=== PATIENT | female | born 1965 | race Caucasian/White ===

== ENCOUNTER → 2023-12-08 11:23 | Outpatient (REF) | payer MEDICARE, SELFPAY ==
[2023-12-08 13:33] LABS: % Basophils 0.8 % (0-2); % Eosinophils 3.8 % (0-6); % Immature Granulocytes 1.1 % (0-0.5); % Lymphocytes 34.2 % (20.5-51.1); % Monocytes 8.6 % (1.7-9.3); % Neutrophils 51.5 % (42.2-75.2); Absolute Eosinophils 0.1 10^3/uL (0-0.7); Absolute Lymphocytes 0.9 10^3/uL (1.2-3.4); Absolute Monocytes 0.2 10^3/uL (0.1-0.6); Absolute Neutrophils 1.4 10^3/uL (1.4-6.5); Hematocrit 30.4 % (37.0-47.0); Hemoglobin 9.9 g/dL (12.0-16.0); Mean Corp Hgb Conc. 32.6 g/dL (33.0-37.0); Mean Corpuscular Volume 101.3 fL (81.0-99.0); Mean Platelet Volume 9.4 fL (7.4-10.4); Nucleated Red Blood Cells % 0 %; Platelet Count 202 10^3/uL (130-400); Red Cell Dist. Width 13.9 % (11.5-14.5); White Blood Cell Count 2.7 10^3/uL (4.8-10.8)
[2023-12-08 14:00] LABS: ALT (SGPT) 16 U/L (0-35); AST (SGOT) 52 U/L (14-36); Albumin 3.4 g/dl (3.5-5.0); Alkaline Phosphatase 128 U/L (38-126); Blood Urea Nitrogen 15 mg/dl (7-17); Calcium 8.9 mg/dl (8.4-10.2); Carbon Dioxide 25 mmol/L (22-30); Chloride 107 mmol/L (98-107); Glucose 83 mg/dl (70-99); Potassium 4.1 mmol/L (3.5-5.1); Sodium 142 mmol/L (135-145); Total Bilirubin 0.2 mg/dl (0.2-1.3); Total Protein 6.4 g/dl (6.3-8.2); eGFR > 60.00
[2023-12-08 14:14] LABS: Free T4 0.62 ng/dl (0.78-2.19); Vitamin D, 25-OH*** 36.6 ng/mL (30-80)
[2023-12-08 14:27] LABS: TSH 2.53 uIU/ml (0.47-4.68); TSH Reflex To Free T4 2.53 uIU/ml (0.47-4.68)
[2023-12-08 14:47] LABS: Vitamin B12 729 pg/ml (239-931)
[2023-12-08 16:02] LABS: Folate 6.6 ng/ml (2.76-20)
== END ==
LOC: RAD 11:23
PROVIDERS: ATTENDING PHYSICIAN Internal Medicine
DX: S09.90XA Unspecified injury of head, initial encounter (principal); R51.9 Headache, unspecified; R26.81 Unsteadiness on feet; D53.9 Nutritional anemia, unspecified; R63.4 Abnormal weight loss; E55.9 Vitamin D deficiency, unspecified; E53.8 Deficiency of other specified B group vitamins; E03.9 Hypothyroidism, unspecified
CPT/HCPCS: 36415; 70450; 80053; 82306; 82607; 82746; 84439; 84443; 85025

== ENCOUNTER 2023-12-15 13:34 | Emergency (ER) | payer MEDICARE, SELFPAY ==
[2023-12-15 13:37] VITALS: BP 129/84
[2023-12-15 14:02] LABS: % Basophils 0.7 % (0-2); % Eosinophils 3.5 % (0-6); % Immature Granulocytes 0.4 % (0-0.5); % Lymphocytes 21.5 % (20.5-51.1); % Monocytes 7.8 % (1.7-9.3); % Neutrophils 66.1 % (42.2-75.2); Absolute Eosinophils 0.2 10^3/uL (0-0.7); Absolute Monocytes 0.4 10^3/uL (0.1-0.6); Absolute Neutrophils 3.1 10^3/uL (1.4-6.5); Hematocrit 30.1 % (37.0-47.0); Hemoglobin 9.8 g/dL (12.0-16.0); Mean Corp Hgb Conc. 32.6 g/dL (33.0-37.0); Mean Corpuscular Hgb 33.7 pg (27.0-31.0); Mean Corpuscular Volume 103.4 fL (81.0-99.0); Nucleated Red Blood Cells % 0 %; Platelet Count 214 10^3/uL (130-400); Red Blood Cell Count 2.91 10^6/uL (4.20-5.40); Red Cell Dist. Width 13.9 % (11.5-14.5); White Blood Cell Count 4.6 10^3/uL (4.8-10.8)
[2023-12-15 14:16] LABS: ALT (SGPT) 11 U/L (0-35); AST (SGOT) 25 U/L (14-36); Albumin 3.2 g/dl (3.5-5.0); Alkaline Phosphatase 139 U/L (38-126); Blood Urea Nitrogen 23 mg/dl (7-17); Calcium 8.2 mg/dl (8.4-10.2); Carbon Dioxide 27 mmol/L (22-30); Chloride 102 mmol/L (98-107); Glucose 87 mg/dl (70-99); Potassium 3.7 mmol/L (3.5-5.1); Sodium 137 mmol/L (135-145); Total Bilirubin 0.4 mg/dl (0.2-1.3); Total Protein 6.2 g/dl (6.3-8.2); eGFR 47.66
[2023-12-15 14:28] LABS: Troponin I < 0.012 ng/ml
[2023-12-15 14:38] VITALS: BMI 27.4
--- NOTE | 2023-12-15 14:41 | ED.GENMED ---
History of Present Illness
General
Chief Complaint: Swelling
Time Seen by Provider: 12/15/23 14:41
History of Present Illness
History of Present Illness:
TIME OF INITIAL ENCOUNTER: 2:45 PM
HPI: The patient presents due to pain and swelling along with redness left greater than right lower extremities. She has had episodes of swelling in the past successfully treated with diuretic. This is the first time she felt warmth and redness.
EXAM:
GENERAL: Well appearing in no distress
HEENT: Moist oral mucosa
CARDIOVASCULAR: No murmurs, normal heart rate, regular rhythm, No chest wall tenderness
PULMONARY: No respiratory distress, breath sounds are clear and equal
ABDOMEN: Soft with no peritoneal signs, no tenderness
NEUROLOGIC: Excellent strength all extremities, no coordination deficits
PSYCHIATRIC: Appropriate mental status, normal insight and judgement
EXTREMITIES: Mild distal left lower extremity tenderness, left greater than right lower extremity edema, moves all extremities equally
SKIN: Warmth and patchy erythema noted to the left greater than right lower extremities
NUMBER AND COMPLEXITY OF PROBLEMS ADDRESSED AT THE ENCOUNTER
� Chronic conditions affecting care: High blood pressure,
� Acute Exacerbation and/or Progression of Chronic Illness:
� Differential Diagnosis includes:
AMOUNT AND/OR COMPLEXITY OF DATA TO BE REVIEWED AND ANALYZED
� I performed an independent evaluation of and my interpretation is:
EKG: Sinus 86, normal axis, no acute ST abnormality
CT:
X-rays:
Laboratory Studies: White count 4.6, hemoglobin 9.8, creatinine 1.3, troponin less than 0.012, BNP 575
Other: Ultrasound imaging shows no evidence of DVT
� Review of other/old records: The patient was seen here in 2019 related to hypotension
� Clinical information was obtained by an independent historian: Spoke to significant other at bedside
� Prescriptions/Medications Considered but not given:
� Further testing considered but not performed:
RISK OF COMPLICATIONS AND/OR MORBIDITY OR MORTALITY OF PATIENT MANAGEMENT
� Social determinants of health affecting care:
� Discussion with other providers:
� Escalation of care including admission/observation vs risk of discharge considered: Given the warmth and erythema to the lower extremities, I more strong suspect cellulitis. Ultrasound imaging shows no evidence of DVT. She is
moving to [place] and is actually leaving [facility]. I am sending a prescription to her pharmacy and she will continue antibiotics.
ANY OTHER UPDATES:
4:35 PM: Well-appearing on reassessment
Past History
Past History
ED Past Medical History: HTN and Other (Chronic back pain followed by pain management with Dr. Estevez. Prescribed OxyContin and gabapentin. Pancreatitis, Anemia, ARDS); Negative Asthma, Hypercholesterolemia or NIDDM
ED Past Surgical History: None
Social History
Tobacco: Smoker
Alcohol: None
Personal:
Living: with family
Employment: Not employed
Phy Exam
Physical Exam
Physical Exam:
See HPI
Scores
Heart Failure Risk
Heart Failure Risk Score: Not Applicable
Course
Orders/Labs/Results
Orders:
Orders
12/15/23 13:43
Electrocardiogram (*1) Urgent
Reason for Study: Other
Other Reason for Exam: Respiratory Distress
EKG- Treatment ONCE
12/15/23 13:53
Complete Blood Count/With Diff Urgent
Comprehensive Metabolic Panel Urgent
NT-proBNP Urgent
Troponin I Urgent
12/15/23 14:52
Cephalexin Monohydrate [Keflex] 500 mg PO NOW STA
US Periph Venous LOWER Ext Fred Urgent
Comment:
Reason For Exam: L >R swelling pain
Abnormal Lab Results
12/15/23
13:53
WBC 4.6 L 10^3/uL
(4.8-10.8)
RBC 2.91 L 10^6/uL
(4.20-5.40)
Hgb 9.8 L g/dL
(12.0-16.0)
Hct 30.1 L %
(37.0-47.0)
MCV 103.4 H fL
(81.0-99.0)
MCH 33.7 H pg
(27.0-31.0)
MCHC 32.6 L g/dL
(33.0-37.0)
Absolute Lymphs (auto) 1.0 L 10^3/uL
(1.2-3.4)
BUN 23 H mg/dl
(7-17)
Creatinine 1.3 H mg/dL
(0.6-1.0)
Calcium 8.2 L mg/dl
(8.4-10.2)
Alkaline Phosphatase 139 H U/L
(38-126)
Total Protein 6.2 L g/dl
(6.3-8.2)
Albumin 3.2 L g/dl
(3.5-5.0)
12/15/23 13:53
12/15/23 13:53
Vital Signs
Initial and Last Documented VS:
Initial Vital Signs
Temp Pulse Resp BP Pulse Ox
98.7 F 95 18 129/84 98
12/15/23 13:37 12/15/23 13:37 12/15/23 13:37 12/15/23 13:37 12/15/23 13:37
Last Documented Vital Signs
Temp Pulse Resp BP Pulse Ox
98.7 F 95 18 129/84 98
12/15/23 13:37 12/15/23 13:37 12/15/23 13:37 12/15/23 13:37 12/15/23 13:37
*Critical Care Note
Total Time (30-74mins, 75-104mins- exclusive of procedures): Not Applicable
ED Attending Note
-
Portions of this chart may have been created with voice recognition software.� Occasional wrong word or��sound alike� substitutions may have occurred due to the inherent limitations of voice recognition software.
Discharge Plan
Departure
Patient Disposition: Home (Routine Discharge)
Date of Disposition: 12/15/23
Time of Disposition: 16:31
Patient with high blood pressure during this ER visit?: Yes
Discharge Problem:
Cellulitis
Instructions: Cellulitis (Skin Infection), Adult ED
Prescriptions:
New
cephalexin 500 mg capsule
500 mg PO TID Qty: 21 0RF
No Action
oxycodone 10 MG tablet
1 tab PO TID
Patient Comments:
04/12/2019 patient filled #90 for 30 on 03/27/2019
losartan 50 MG tablet
50 mg PO HS
omeprazole 40 MG capsule,delayed release(DR/EC)
40 mg PO HSPRN PRN (Reason: acid reflux)
gabapentin 800 MG tablet
1,600 mg PO TID
hydroxyzine HCl 25 MG tablet
25 mg PO TIDPRN PRN (Reason: itching)
duloxetine 30 MG capsule,delayed release(DR/EC)
90 mg PO HS
Referrals:
Asif Lee MD [Family Provider] -
Activity Restrictions/Additional Instructions:
Your white blood cell count is not elevated. The blood test for heart failure is not consistent with heart failure as the cause of your swelling, your creatinine is 1.3 which is high indicating impaired kidney function therefore be cautious with
overuse of diuretics. I am sending a prescription for antibiotics to the [facility] in [place].
Interventions
Interventions:
*Risk Screen - Suicide Last Done: 12/15/23 13:41
*General Assessment Last Done: 12/15/23 13:41
*Neglect/Abuse Screening Last Done: 12/15/23 13:41
ED- Fall Risk Assessment Last Done: 12/15/23 14:38
*ED COVID-19 Vaccine History Last Done: 12/15/23 13:41
ED- Cardiac Assessment Last Done: 12/15/23 14:38
ED- Pulmonary Assessment Last Done: 12/15/23 14:38
ED-Peripheral Vascular Assessment Last Done: 12/15/23 14:38
ED-Skin Assessment Last Done: 12/15/23 14:38
Discharge Date and Time
Print Language: IRANIAN
[2023-12-15 14:42] LABS: NT-proBNP 575 pg/ml
[2023-12-15] MEDS: KEFLEX 500 MG PO (15:19)
== END 2023-12-15 16:47 | disposition home or self-care (01) ==
LOC: EMR 13:34
PROVIDERS: EMERGENCY PHYSICIAN Emergency Medicine; FAMILY PHYSICIAN Internal Medicine
DX: L03.116 Cellulitis of left lower limb (principal); L03.115 Cellulitis of right lower limb; I10 Essential (primary) hypertension; F17.200 Nicotine dependence, unspecified, uncomplicated
CPT/HCPCS: 99285; 80053; 83880; 84484; 85025; 93005; 93970

== ENCOUNTER 2024-06-21 11:17 | Emergency (ER) | payer MEDICARE, SELFPAY ==
[2024-06-21 11:20] VITALS: BP 169/90
[2024-06-21 12:05] LABS: % Basophils 1.2 % (0-2); % Eosinophils 3.6 % (0-6); % Immature Granulocytes 0.7 % (0-0.5); % Lymphocytes 37.8 % (20.5-51.1); % Monocytes 9.8 % (1.7-9.3); % Neutrophils 46.9 % (42.2-75.2); Absolute Basophils 0.1 10^3/uL (0-0.2); Absolute Eosinophils 0.2 10^3/uL (0-0.7); Absolute Lymphocytes 1.6 10^3/uL (1.2-3.4); Absolute Monocytes 0.4 10^3/uL (0.1-0.6); Hematocrit 29.6 % (37.0-47.0); Hemoglobin 9.7 g/dL (12.0-16.0); Mean Corp Hgb Conc. 32.8 g/dL (33.0-37.0); Mean Corpuscular Hgb 33.9 pg (27.0-31.0); Mean Corpuscular Volume 103.5 fL (81.0-99.0); Mean Platelet Volume 9.3 fL (7.4-10.4); Nucleated Red Blood Cells % 0 %; Platelet Count 207 10^3/uL (130-400); Red Blood Cell Count 2.86 10^6/uL (4.20-5.40); Red Cell Dist. Width 14.1 % (11.5-14.5); White Blood Cell Count 4.2 10^3/uL (4.8-10.8)
[2024-06-21 12:18] LABS: ALT (SGPT) 11 U/L (0-35); AST (SGOT) 30 U/L (14-36); Albumin 3.5 g/dl (3.5-5.0); Alkaline Phosphatase 84 U/L (38-126); Blood Urea Nitrogen 15 mg/dl (7-17); Calcium 8.8 mg/dl (8.4-10.2); Carbon Dioxide 21 mmol/L (22-30); Chloride 111 mmol/L (98-107); Glucose 75 mg/dl (70-99); Potassium 4.7 mmol/L (3.5-5.1); Sodium 140 mmol/L (135-145); Total Bilirubin 0.4 mg/dl (0.2-1.3); Total Protein 6.2 g/dl (6.3-8.2); eGFR > 60.00
--- NOTE | 2024-06-21 12:40 | ED.GENMED ---
History of Present Illness
General
Chief Complaint: Fall
Source: patient
Exam Limitations: none
Time Seen by Provider: 06/21/24 12:25
History of Present Illness
History of Present Illness:
58yoF with a history of hypertension, chronic back pain on opioids, and anemia presenting for evaluation after a fall. 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 She falls very frequently and usually falls
about 2-3 times a week. Falls primarily occur at nighttime. She states she will fall asleep while in the toilet and fall. She had a fall about 4 days ago in which she tripped and struck the right side of her head against a table. There was no
LOC. She had a black eye for few days which is resolving. She continues to have ongoing headaches which is unusual for her. She spoke with her PCP and told him to the ED for a CT scan. She denies any nausea or vomiting. No neck pain. No other
injuries reported. She does not take any blood thinners and ambulates with a walker. Patient is taking multiple medications for chronic back pain including oxycodone, gabapentin, and duloxetine.
Past History
Past History
ED Past Medical History: HTN and Other (Chronic back pain followed by pain management with Dr. Estevez. Prescribed OxyContin and gabapentin. Pancreatitis, Anemia, ARDS); Negative Asthma, Hypercholesterolemia or NIDDM
ED Past Surgical History: None
Social History
Tobacco: Smoker
Alcohol: None
Personal:
Living: with family
Employment: Not employed
Phy Exam
General Physical Exam
General Presentation: well appearing and no apparent distress
General Skin: warm and dry
General Habitus: normal
General Mental: alert
ENT Exam
ENT Exam: TM's normal (No hemotympanum) and other (Healing faint R periorbital ecchymosis. No cervical spine tenderness with full ROM)
Eye Exam
Eye Exam: PERRL
Cardiovascular Exam
Cardiovascular Exam: regular rate/rhythm and no murmur
Pulmonary Exam
Pulmonary Exam: lungs clear, no respiratory distress, no rales, no crackles, no rhonchi and no wheezing
Neurological Exam
Neurological Exam: alert and other (5/5 strength in bilateral lower extremities)
Eliot Coma Scale
Eye Opening: Spontaneous
Verbal Response: Oriented
Motor Response: Obeys Commands
GCS Total Score: 15
Skin Exam
Skin Exam: normal color and warm/dry
Psychiatric Exam
Psychiatric Exam: normal mood/affect
Course
Orders/Labs/Results
Orders:
Orders
06/21/24 11:24
CT Head W/o Iv Contrast Urgent
Comment:
Reason For Exam: multiple falls, head injury
06/21/24 11:27
Complete Blood Count/With Diff Urgent
Comprehensive Metabolic Panel Urgent
Abnormal Lab Results
06/21/24
11:27
WBC 4.2 L 10^3/uL
(4.8-10.8)
RBC 2.86 L 10^6/uL
(4.20-5.40)
Hgb 9.7 L g/dL
(12.0-16.0)
Hct 29.6 L %
(37.0-47.0)
MCV 103.5 H fL
(81.0-99.0)
MCH 33.9 H pg
(27.0-31.0)
MCHC 32.8 L g/dL
(33.0-37.0)
Immature Gran % 0.7 H %
(0-0.5)
Monocytes % 9.8 H %
(1.7-9.3)
Chloride 111 H mmol/L
(98-107)
Carbon Dioxide 21 L mmol/L
(22-30)
Total Protein 6.2 L g/dl
(6.3-8.2)
06/21/24 11:27
06/21/24 11:27
Vital Signs
Initial and Last Documented VS:
Initial Vital Signs
Temp Pulse Resp BP Pulse Ox
98.9 F 85 16 169/90 100
06/21/24 11:20 06/21/24 11:20 06/21/24 11:20 06/21/24 11:20 06/21/24 11:20
Last Documented Vital Signs
Temp Pulse Resp BP Pulse Ox
98.9 F 75 16 165/97 100
06/21/24 11:20 06/21/24 12:42 06/21/24 12:42 06/21/24 12:42 06/21/24 12:42
MDM/Problems Addressed
Differential Diagnosis Includes:
58yoF here after a fall 4 days ago with head injury. No LOC. C/o ongoing headache. Hx of 'permanent nerve damage' from prior back injuries. Falls several times a week. Sent in by PCP for a CT scan. She is mildly hypertensive with otherwise stable
vitals. There is faint healing R periorbital ecchymosis noted. She is awake, alert, with a GCS of 15. Differential diagnosis includes but is not limited to: ambulatory dysfunction, polypharmacy, closed head injury, concussion, intracranial
hemorrhage, skull fracture
Initial ED plan: Labs obtained in triage. Hemoglobin at baseline. Remainder of labs unremarkable. Will obtain CT head.
*Critical Care Note
Total Time (30-74mins, 75-104mins- exclusive of procedures): Not Applicable
Update Note
Update Note:
CT head negative for findings. Offered PT evaluation which patient declines. She reports having PT for many years without any improvement and states that her nerve damage is permanent. No indication for hospitalization. Concern for possible
polypharmacy multiple sedating medication including gabapentin 1600 mg 3 times daily, oxycodone, and duloxetine. Patient advised to discuss this with her PCP to determine if any medication adjustments are needed. ED return precautions reviewed.
Patient and eager to go home. Patient discharged stable condition.
ED Attending Note
-
Portions of this chart may have been created with voice recognition software.� Occasional wrong word or��sound alike� substitutions may have occurred due to the inherent limitations of voice recognition software.
Discharge Plan
Departure
Patient Disposition: Home (Routine Discharge)
Date of Disposition: 06/21/24
Time of Disposition: 13:13
Patient with high blood pressure during this ER visit?: Yes
Discharge Problem:
Frequent falls, Closed head injury
Instructions: Head Injury in Adults (DC), Preventing falls in adults
Prescriptions:
No Action
oxycodone 10 MG tablet
1 tab PO TID
Patient Comments:
04/12/2019 patient filled #90 for 30 on 03/27/2019
losartan 50 MG tablet
50 mg PO HS
omeprazole 40 MG capsule,delayed release(DR/EC)
40 mg PO HSPRN PRN (Reason: acid reflux)
gabapentin 800 MG tablet
1,600 mg PO TID
hydroxyzine HCl 25 MG tablet
25 mg PO TIDPRN PRN (Reason: itching)
duloxetine 30 MG capsule,delayed release(DR/EC)
90 mg PO HS
cephalexin 500 mg capsule
500 mg PO TID Qty: 21 0RF
Referrals:
Asif Lee MD [Family Provider] -
Activity Restrictions/Additional Instructions:
Please call your family doctor today to schedule a follow-up appointment and discuss if any medication adjustments need to be made.
Return to the ER with any new or worsening symptoms.
Interventions
Interventions:
*Risk Screen - Suicide Last Done: 06/21/24 11:20
*General Assessment Last Done: 06/21/24 11:20
*Neglect/Abuse Screening Last Done: 06/21/24 12:43
*ED- Fall Risk Assessment Last Done: 06/21/24 12:35
*ED COVID-19 Vaccine History Last Done: 06/21/24 11:20
ED-Musculoskeletal Assessment Last Done: 06/21/24 12:32
ED- Neurological Assessment Last Done: 06/21/24 12:32
ED-Skin Assessment Last Done: 06/21/24 12:32
Discharge Date and Time
Print Language: ROMANSH
[2024-06-21 12:42] VITALS: BP 165/97
--- NOTE | 2024-06-21 13:50 | EDRN ---
Reviewed discharge instructions with patient. Verbalized understanding. Ambulated with steady gait to the lobby.
[2024-06-21 13:51] VITALS: BP 175/92
== END 2024-06-21 13:30 | disposition home or self-care (01) ==
LOC: EMR 11:17
PROVIDERS: EMERGENCY PHYSICIAN Emergency Medicine; FAMILY PHYSICIAN Internal Medicine
DX: S09.90XA Unspecified injury of head, initial encounter (principal); W19.XXXA Unspecified fall, initial encounter; G89.29 Other chronic pain; I10 Essential (primary) hypertension; F17.200 Nicotine dependence, unspecified, uncomplicated; R29.6 Repeated falls
CPT/HCPCS: 99284; 70450; 80053; 85025